=== PATIENT | female | born 1970 | race Caucasian/White ===

== ENCOUNTER → 2016-06-27 | Day surgery (SDC) | payer OTHER ==
[2016-06-14 13:51] VITALS: Ht 167.6 cm; Wt 100.9 kg
[~2016-06-27] VITALS: Ht 167.6 cm; Wt 100.9 kg
[~2016-06-27] MED LIST: AMX500 PO; ASPI81TA28 PO; DICL1GEL12 TOP; EPIN1INJ37 IM; EPP3/2 IM; GLC500 PO; LEVO200T6 PO; LEVO300T31 PO; LEVO75TA5 PO; LIDOCAINE HCL 2% 2 ML VIAL (20MG/ML) ONE; LISI-461 PO; LISI10TA PO; LPT/20 PO; LSX20 PO; MIDAZOLAM HCL 1 MG/ML 2ML VIAL ONE; MTR/600 PO; OMEP20CA9 PO; ONDANSETRON INJ 2 MG/ML 2 ML VIAL ONE; OXYC-106 PO; POTA10TA32 PO; PRLSR20 PO; PROPOFOL IV EMULSION 10 MG/ML 20 ML VIAL IV ONE; PRVHFAIN INH; RANI150T2 PO; RANI150T3 PO; SODIUM CHLORIDE 0.9% 500ML 500 ML IV ONE; TOLT1CAP3 PO
--- NOTE | 2016-06-27 09:37 | Endo History and Physical ---
History & Physical Date of Service: Jun 27, 2016. Chief Complaint: Holm's Referring Physician: Dr. 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 Past Surgical History Hx Cardiac Surgery: No Hx Internal Defibrillator: No Hx Pacemaker: No Hx Abdominal Surgery: Yes ( JOSE MIGUEL, ALEXIS BSO) Hx of Implantable Prosthesis: No Hx Post-Op Nausea and Vomiting: No Hx Cancer Surgery: No Hx Thoracic Surgery: No Hx Orthopedic: Yes (RT/LEFT KNEE ARTHROSCOPY (LEFT X 2); LUMBAR LAMINECTOMY, LUMBAR FUSION) Hx Urinary Tract Surgery: No Family History Colon CA Social History Smoking Status: Current Every Day Smoker Hx Substance Use: Yes (SEE MED REC) Hx Alcohol Use: No Allergies Coded Allergies: Bee Venom (Verified Allergy, Unknown, SWELLING, CAN'T BREATHE, 06/14/16) Reported by PT Morphine (Verified Adverse Reaction, Intermediate, Pt was "out of it", ) PT SAYS SHE WAS "OUT OF IT" WHEN SHE RECEIVED IT Codeine (Verified Adverse Reaction, Mild, HYPERACTIVITY, 06/14/16) Current Medications Reported Home Medications Medications Dose Route/Sig Max Daily Dose Days Date Category Dose Instructions Prinivil (Lisinopril) 10 Mg Tab 10 Mg PO QAM 06/14/16 Reported Ventolin Hfa (Albuterol) 60 Puffs/5400 Mcg Aers 1-2 Puffs INH Q4H PRN 06/14/16 Reported Metformin HCl 500 Mg Tab 500 Mg PO BID 11/13/15 Reported Aspirin Ec (Aspirin) 81 Mg Tab 81 Mg PO QAM 08/31/14 Reported Atorvastatin Calcium (Atorvastatin) 20 Mg Tab 20 Mg PO QAM 08/31/14 Reported Levothyroxine Sodium 300 Mcg Tab 300 Mcg PO QAM 08/31/14 Reported Zantac (Ranitidine HCl) 150 Mg Tab 300 Mg PO HS 08/31/14 Reported Percocet 10MG/325MG (Oxycodone/Acetaminophen) Tab 1 Tab PO 5XD PRN 08/31/14 Reported Epipen 2-Hola (Epinephrine) 0.3 Mg Inj 0.3 Mg IM UD PRN 08/31/14 Reported DIRECTED FOR BEE STINGS. Tolterodine Tartrate ER (Tolterodine Tartrate) 4 Mg Cap 4 Mg PO QAM 08/31/14 Reported Prilosec (Omeprazole) 20 Mg Capcr 20 Mg PO QAM 06/19/13 Reported Vital Signs Weight (Kilograms): 100.91 Height (Feet): 5 Height (Inches): 6 Date Time Temp Pulse Resp B/P Pulse Ox O2 Delivery O2 Flow Rate FiO2 06/27/16 08:54 36.5 71 20 137/85 100 Room Air Physical Exam General Appearance: WD/WN, no apparent distress Respiratory/Chest: Auscultation: breath sounds normal Cardiovascular: Heart Auscultation: RRR Abdomen: Bowel Sounds: normal Inspection & Palpation: soft, non-distended, no tenderness, guarding & rebound Assessment and Plan Assessment: 46 yo CF who presents for EGD secondary to Holm's Esophagus. Plan: Proceed with EGD
--- NOTE | 2016-06-27 09:48 | Discharge Instructions ---
Endoscopy Patient Instructions Date / Procedure(s) Performed Jun 27, 2016. EGD Allergy Information Coded Allergies: Bee Venom (Verified Allergy, Unknown, SWELLING, CAN'T BREATHE, 06/14/16) Reported by PT Morphine (Verified Adverse Reaction, Intermediate, Pt was "out of it", ) PT SAYS SHE WAS "OUT OF IT" WHEN SHE RECEIVED IT Codeine (Verified Adverse Reaction, Mild, HYPERACTIVITY, 06/14/16) Discharge Date / Findings Jun 27, 2016. Gastritis s/p biopsies Holm's Esophagus s/p biopsies Medication Instructions Stopped Medication(s): stopped ASA and Metformin on June 23 OK to resume all medications today as prescribed Reported Home Medications Medications Dose Route/Sig Max Daily Dose Days Date Category Dose Instructions Prinivil (Lisinopril) 10 Mg Tab 10 Mg PO QAM 06/14/16 Reported Ventolin Hfa (Albuterol) 60 Puffs/5400 Mcg Aers 1-2 Puffs INH Q4H PRN 06/14/16 Reported Metformin HCl 500 Mg Tab 500 Mg PO BID 11/13/15 Reported Aspirin Ec (Aspirin) 81 Mg Tab 81 Mg PO QAM 08/31/14 Reported Atorvastatin Calcium (Atorvastatin) 20 Mg Tab 20 Mg PO QAM 08/31/14 Reported Levothyroxine Sodium 300 Mcg Tab 300 Mcg PO QAM 08/31/14 Reported Zantac (Ranitidine HCl) 150 Mg Tab 300 Mg PO HS 08/31/14 Reported Percocet 10MG/325MG (Oxycodone/Acetaminophen) Tab 1 Tab PO 5XD PRN 08/31/14 Reported Epipen 2-Hola (Epinephrine) 0.3 Mg Inj 0.3 Mg IM UD PRN 08/31/14 Reported DIRECTED FOR BEE STINGS. Tolterodine Tartrate ER (Tolterodine Tartrate) 4 Mg Cap 4 Mg PO QAM 08/31/14 Reported Prilosec (Omeprazole) 20 Mg Capcr 20 Mg PO QAM 06/19/13 Reported Provider Instructions Activity Restrictions - No exercising or heavy lifting for 24 hours. - Do not drink alcohol the day of the procedure. - Do not drive a car or operate machinery until the day after the procedure. - Do not make any important decisions or sign important papers in 24 hours after the procedure. Following Day: - Return to full activity which may include returning to work/school. Diet Start your diet with liquids and light foods (jello, soup, juice, toast). Then eat your usual diet if not nauseated. Treatment For Common After Affects For mild abdominal pain, bloating, or excessive gas: - Rest - Eat lightly - Lie on right side Follow-Up Information Follow-up with Dr. Rory Randall as scheduled Anesthesia Information What You Should Know You have had a procedure that required some medicine to reduce anxiety and discomfort. This treatment is called moderate sedation. After receiving the treatment, you may be sleepy, but you will be able to breathe on your own. The effects of the treatment may last for several hours. Follow these instructions along with Activity/Diet recommendations noted above: * Do NOT do anything where dizziness or clumsiness would be dangerous. * Rest quietly at home today, then you can be up and about tomorrow. * Have a responsible person stay with you the rest of today. * You may have had an I.V. today. If so, you may take the dressing off later today. Recommendations Call your doctor if: * Trouble breathing * Continuous vomiting for more than 24 hours * Temperature above 101 degrees * Severe abdominal pain or bloating * Pain not relieved by pain medicine ordered * There is increased drainage or redness from any incision * A large amount of rectal bleeding greater than 2-3 tablespoons. (If you had a polyp/s removed or have hemorrhoids, a small amount of blood - from the rectum is to be expected.) * You have any unanswered questions or concerns. IN THE EVENT OF A SERIOUS EMERGENCY, GO TO THE NEAREST EMERGENCY ROOM Your discharge instructions were prepared by provider Juan Manuel Albarado. Patient Instructions Signature Page Barbara Andujar Patient (or Guardian) Signature/Date: I have read and understand the instructions given to me by my caregivers. Caregiver/RN/Doctor Signature/Date: The above-named patient and/or guardian has received patient instructions on this date. + Original Patient Signature Page (only) stays with chart. Please make copy for patient.
--- NOTE | 2016-06-27 10:13 | Anesthesiology Progress Note ---
Anesthesia Post Op Note Date & Time Jun 27, 2016 at 10:12 Vital Signs Pain Intensity: 0 Vital Signs Past 12 Hours Date Time Temp Pulse Resp B/P Pulse Ox O2 Delivery O2 Flow Rate FiO2 06/27/16 10:08 72 20 117/78 98 Room Air 06/27/16 09:53 83 20 104/58 95 Mask 5 06/27/16 08:54 36.5 71 20 137/85 100 Room Air Notes Mental Status: alert / awake / arousable, participated in evaluation Pt Amnestic to Procedure: Yes Nausea / Vomiting: adequately controlled Pain: adequately controlled Airway Patency, RR, SpO2: stable & adequate BP & HR: stable & adequate Hydration State: stable & adequate Anesthetic Complications: no major complications apparent Pt doing well.
[2016-06-27 10:23] VITALS: BP 112/73; PULSE 69; O2SAT 99
--- NOTE | 2016-06-27 10:42 | GI REPORT ---
Procedure Date: 06/27/2016 9:36 AM Procedure: Upper GI endoscopy Indications: Follow-up of Holm's esophagus Medicines: Monitored Anesthesia Care Complications: No immediate complications. Estimated Blood Loss: Estimated blood loss: none. Procedure: Pre-Anesthesia Assessment: - Prior to the procedure, a History and Physical was performed, and patient medications and allergies were reviewed. The patient's tolerance of previous anesthesia was also reviewed. The risks and benefits of the procedure and the sedation options and risks were discussed with the patient. All questions were answered, and informed consent was obtained. Prior Anticoagulants: The patient has taken aspirin, last dose was 5 days prior to procedure. ASA Grade Assessment: III - A patient with severe systemic disease. After reviewing the risks and benefits, the patient was deemed in satisfactory condition to undergo the procedure. After obtaining informed consent, the endoscope was passed under direct vision. Throughout the procedure, the patient's blood pressure, pulse, and oxygen saturations were monitored continuously. The On-site loaner was introduced through the mouth, and advanced to the second part of duodenum. The upper GI endoscopy was accomplished without difficulty. The patient tolerated the procedure well. Findings: There were esophageal mucosal changes consistent with short-segment Holm's esophagus present at the gastroesophageal junction. The maximum longitudinal extent of these mucosal changes was 2 cm in length. Mucosa was biopsied with a cold forceps for histology. One specimen bottle was sent to pathology. Localized mild inflammation characterized by erythema was found in the gastric antrum. Biopsies were taken with a cold forceps for histology. The examined duodenum was normal. Impression: - Esophageal mucosal changes consistent with short-segment Holm's esophagus. Biopsied. - Gastritis. Biopsied. - Normal examined duodenum. Recommendation: - Resume previous diet. - Continue present medications. - Await pathology results. - Return to GI office as previously scheduled. Juan Manuel Albarado DO 06/27/2016 9:52:58 AM This report has been signed electronically. Note Initiated On: 06/27/2016 9:36 AM I attest to the content of the Intraoperative Record and orders documented therein, exceptions below
== END | disposition home or self-care (01) ==
LOC: C.GI 08:32
PROVIDERS: ATTEND Internal Medicine
DX: K22.70 Barrett's esophagus without dysplasia (principal); K29.50 Unspecified chronic gastritis without bleeding; K21.0 Gastro-esophageal reflux disease with esophagitis; F17.200 Nicotine dependence, unspecified, uncomplicated

== ENCOUNTER → 2016-10-26 | Outpatient (CLI) | payer OTHER ==
[~2016-10-26] MED LIST changes: -LEVO300T31 PO; +LEVO300T5 PO; -LIDOCAINE HCL 2% 2 ML VIAL (20MG/ML) ONE; -MIDAZOLAM HCL 1 MG/ML 2ML VIAL ONE; -ONDANSETRON INJ 2 MG/ML 2 ML VIAL ONE; -PROPOFOL IV EMULSION 10 MG/ML 20 ML VIAL IV ONE; -SODIUM CHLORIDE 0.9% 500ML 500 ML IV ONE
--- NOTE | 2016-10-27 06:50 | SPLIT NIGHT TECHNICIAN REPORT ---
[facility] Split Night Polysomnogram - Technical Customer Support Specialist Report Study date: 10/26/2016 Referring Physician: EVON AMOS PA-C Name: SAMIR LANE Technical Customer Support Specialist: Stephen Ruelas [facility]. Date of : 1970 Height: 46 years, Height 5' 5" Sex: Female Weight: 219 lbs Age: 46 BMI: Medications: 36.44 LISINOPRIL 10 MG, METFORMIN 500 MG, CLARITIN 10 MG, SYNTHROID 200 MCG, ZOFRAN ODT 4 MG, VENTOLIN HFA 90 MCG, IBUPROFEN 600 MG, DEXILANT 60 MG, ZANTAC, DETROL LA 4 MG, VENTOLIN HFA 90 MCG, METFORMIN 500 MG, ATORVASTATIN HFA 90 MCG, HYDROCHLOROTHIAZIDE 50 MG, TOLTERODINE 4 MG, OMEPRAZOLE 20 MG, PERCOCET Patient History PATIENT HAS HISTORY OF SNORING, FATIGUE AND EXCESSIVE DAYTIME SLEEPINESS. SHE ALSO HAS HISTORY OF ASTHMA, PUD, ARTHRITIS AND HYPERCHOLESTEROLEMIA. SHE HAD A SLEEP DONE MANY YEARS AND WAS TOLD SHE HAD MILD DENICE. SHE IS HERE TODAY FOR AN EVALUATION FOR DENICE. ESS= 3 RM 5 Parameters Monitored NPSG: E1-M2, E2-M1, Fp1-M2, Fp2-M1, F3-M2, F4-M2, F4-M1, C3-M2, C4-M2, C4-M1, O1-M2, O2-M2, O2-M1, T3-M2, T4-M1, P3-M2, P4-M1, CHIN1, CHIN2, HR, EKG, Legs, PFLOW, SNOR, FLOW, CFLOW, Tidal Volume, THOR, ABDO, SpO2, PLTH, CPRESS, ETCO2 Wave, ETCO2, pH SLEEP SUMMARY DATA DIAGNOSTIC TREATMENT Lights Out: 10:12:47 PM 1:50:47 AM Lights On: 1:39:47 AM 6:12:47 AM Total Recording Time (TRT): 207.5 min. 263.0 min. Total Sleep Time (TST): 123.5 min. 233.0 min. NREM Time: 112.0 min. 172.0 min. REM Time: 11.5 min. 61.0 min. Sleep Period Time (SPT): 138.0 min. 258.5 min. Sleep Efficiency (SE): 60 % 89 % Sleep Latency: 69.0 min. 3.5 min. Arousal Index: 23.8 6.7 PAP Treatment Levels: 4, 5, 6, 8 * Optimal Pressure(s) SLEEP STAGING DATA DIAGNOSTIC TREATMENT Duration (min) TST % Duration (min) TST % Stage Wake: 83.5 min. -- 30.0 min. -- WASO: 14.5 min. -- 25.5 min. -- NREM: 112.0 min. 91 % 172.0 min. 74 % Stage N1: 8.0 min. 6 % 7.5 min. 3 % Stage N2: 75.0 min. 61 % 135.0 min. 58 % Stage N3: 29.0 min. 23 % 29.5 min. 13 % REM: 11.5 min. 9 % 61.0 min. 26 % POSITIONAL DATA Event Count Index Event Count Index Supine: 59 45.5 6 2.6 Supine NREM: 41 37.1 6 2.6 Supine REM: 18 94 N/A N/A Non-Supine: 31 40.7 2 1.0 Non-Supine NREM: 31 40.7 1 1.0 Non-Supine REM: N/A N/A 1 1.0 AROUSAL SUMMARY DATA: Event Count Index Event Count Index Apnea Arousals: 1 1.0 0 1.0 Hypopnea Arousals: 12 5.8 2 0.5 Snore Arousals: 3 1.5 5 1.3 PLM Arousals: 19 9.2 3 0.8 Non-Specific Arousals: 11 5.3 11 2.8 Total Arousals: 49 23.8 26 6.7 MYOCLONUS (PLM) Event Count Index Event Count Index PLM: 134 65.1 121 31.2 PLM AROUSAL: 19 9.2 3 0.8 PLM W/O AROUSAL 134 65.1 118 30.4 PLM W/RESP EVENT 18 0.0 0 0.0 MYOCLONUS (PLM) Event Count Index Event Count Index LM: 7 25.3 34 8.8 LM AROUSAL: 7 3.4 4 1.0 LM W/O AROUSAL LM W/RESP EVENT LM NON SPECIFIC 115 55.9 145 37.3 HEART RATE DATA DIAGNOSTIC TREATMENT Sleep (bpm): 76 71 REM (bpm): 86 92 NREM (bpm): 88 91 Tachycardia Count: 0 0 Tachycardia Duration: 0.00 0 Bradycardia Count: 0 0 Bradycardia Duration: 0.00 0 DIAGNOSTIC PORTION TREATMENT PORTION RESPIRATORY DATA Event Count Index Event Count Index AHI: -- 43.7 -- 1.8 RDI: -- 43.7 -- 2 Obstructive Apnea: 2 1.0 3 0.8 Central Apnea: 0 0.0 1 0.3 Mixed Apnea: 0 0.0 0 0.0 Hypopnea: 88 42.8 3 0.8 RERA: 0 0.0 1 0.3 Total Apneas: 2 1.0 4 1.0 RESPIRATORY DATA REM NREM SLEEP REM NREM SLEEP Supine Position: Obstructive Apneas: 1 1 2 N/A 3 3 Central Apneas: 0 0 0 N/A 0 0 Mixed Apneas: 0 0 0 N/A 0 0 Hypopneas: 17 40 57 N/A 2 2 RERA 0 0 0 N/A 1 1 Total Supine Events: 18 41 59 N/A 6 6 Supine AHI: 94 37.1 45.5 N/A 2.6 2.6 Supine RDI: 93.9 37.1 45.5 N/A 3.2 3.2 REM NREM SLEEP REM NREM SLEEP Non-Supine Position: Obstructive Apneas: N/A 0 0 0 0 0 Central Apneas: N/A 0 0 1 0 1 Mixed Apneas: N/A 0 0 0 0 0 Hypopneas: N/A 31 31 0 1 1 RERA N/A 0 0 0 0 0 Total Supine Events: N/A 31 31 1 1 2 Supine AHI: N/A 40.7 40.7 1.0 1.0 1.0 Supine RDI: N/A 40.7 40.7 1.0 1.0 1.0 OXYGEN DESTAURATION DATA: Event Count Index Event Count Index REM Desaturations: 19 99.1 1 1.0 NREM Desaturations: 77 41.3 6 2.1 SNORE DATA DIAGNOSTIC TREATMENT Snore Time: 4.7 1:54:17 AM Snore TST%: 2 2 Snore Arousal Count: 3 5 Snore Arousal Index: 1.5 1.3 Desaturation Event Summary: Minimum %SpO2 Event Count Mean/Min/Max Duration(sec.) Desaturation Index % Time In Bed > 90 89 22.2 / 5.8 / 60.0 25.5 45.2 86 - 90 84 21.0 / 6.8 / 58.8 21.0 51.8 81 - 85 3 11.7 / 10.3 / 13.3 13.7 2.8 76 - 80 0 N/A 0.0 0.2 71 - 75 0 N/A 0.0 0.0 66 - 70 0 N/A 0.0 0.0 61 - 65 0 N/A 0.0 0.0 56 - 60 0 N/A 0.0 0.0 51 - 55 0 N/A 0.0 0.0 < 50 0 N/A 0.0 0.0 OXYGEN SATURATION DATA DIAGNOSTIC TREATMENT SpO2 Mean Sleep: 88 % 91 % SpO2 Mean REM: 86 % 92 % SpO2 Mean NREM: 88 % 91 % SpO2 Minimum Sleep: 75 % 85 % SpO2 Minimum REM: 75 % 86 % SpO2 Minimum NREM: 82 % 85 % Time Below 90% (TST): 98.0 45.5 Time Below 88% (TST): 60.3 1.7 Total REM NREM Awake <50% 0.0 min. 0.0 min. 0.0 min. 0.0 min. 51 - 60% 0.0 min. 0.0 min. 0.0 min. 0.0 min. 61 - 70% 0.0 min. 0.0 min. 0.0 min. 0.0 min. 71 - 80% 0.9 min. 0.9 min. 0.0 min. 0.0 min. 81 - 90% 253.1 min. 15.3 min. 168.2 min. 69.6 min. 91 - 100% 209.3 min. 56.3 min. 115.3 min. 37.7 min. Average 90 91 90 90 Minimum SpO2 75 75 82 85 Desaturation Event Index 16.4 16.6 17.5 13.3 # Desat. Events below 89% 108 20 77 11 Time(%) with Saturation below 89% 27.4 1.8 20.6 5.0 Time(min.) with Saturation below 89% 126.8 8.3 95.4 23.1 Recording Technical Customer Support Specialist Comments: Ms. Lane slept in the right, left, supine and prone positions. No cardiac arrhythmia noted. Leg movements noted. No bruxism noted. Snoring was noted and scored as a 3 on a scale of 1 through 5. (0=no snoring, 5=snoring loud enough to be heard through a closed door or down the nugent way) At 1:39 am, Ms. Lane has met specific Split-Night criteria during the diagnostic portion of this study. CPAP was initiated at +4 CMH2O and up-titrated to an optimal level of 8 CMH2O, which nearly eliminated all respiratory events and snoring. A Resmed Mirage fx nasal mask was used during titration Ms. Lane awoke to use the restroom 1 time during the night. Ms. Lane stated I slept as well as I do when I am in my own bed. Supplemental oxygen was initiated at 4:40 am starting at 1l/min. The patient was under 89% for at least 5 minutes with an optimal pressure for at least 2 hours and an AHI under 5/hr. The final report will be interpreted and signed by a sleep physician. The completed physician report will then be placed in the patient medical record. Therapy Event: Therapy (cm H20) 0 4 5 6 8 Total Time at Pressure (min.) 207.0 39.4 166.8 35.3 20.5 TST at Pressure (min.) 123.5 34.9 143.3 35.3 19.5 # Periods 1 1 1 1 1 Sleep Onset (min.) 69.0 3.5 0.0 0.0 0.0 REM Onset (min.) 189.5 N/A 89.1 N/A N/A Sleep Efficiency % 59 88 85 100 95 Wakefulness (%) 40.3 11.4 14.1 0.0 4.9 Wakefulness (min.) 83.5 4.5 23.5 0.0 1.0 NREM 1 (%) 3.9 5.1 3.3 0.0 0.0 NREM 1 (min.) 8.0 2.0 5.5 0.0 0.0 NREM 2 (%) 36.2 83.5 37.6 56.2 95.1 NREM 2 (min.) 75.0 32.9 62.8 19.8 19.5 NREM 3 (%) 14.0 0.0 8.4 43.8 0.0 NREM 3 (min.) 29.0 0.0 14.0 15.5 0.0 REM (%) 5.6 0.0 36.6 0.0 0.0 REM (min.) 11.5 0.0 61.0 0.0 0.0 # Arousals 49 3 13 5 5 Arousal Index 23.8 5.2 5.4 8.5 15.4 # Snore 264 15 61 25 51 Snore Index 128.3 25.8 25.5 42.4 156.9 AHI 43.7 0.0 1.3 5.1 3.1 AHI Supine 45.5 0.0 2.4 5.1 3.1 AHI Non-Supine 40.7 N/A 1.0 N/A N/A NREM AHI 38.6 0.0 1.5 5.1 3.1 REM AHI 93.9 N/A 1.0 N/A N/A RDI 43.7 1.7 1.3 5.1 3.1 # Obstructive 2 0 0 2 1 # Central Ap 0 0 1 0 0 # Mixed 0 0 0 0 0 # Hypopneas 88 0 2 1 0 RERAS 0 1 0 0 0 Total Respiratory Events 90 1 3 3 1 Time Below SpO2 89.00% (min.) 82.8 15.4 5.2 0.3 0.0 Mean NREM SpO2 (%) 88 89 91 91 92 Mean REM SpO2 (%) 86 N/A 92 N/A N/A Mean Sleep SpO2 (%) 88 89 92 91 92 Min NREM SpO2 (%) 82 87 85 87 89 Min REM SpO2 (%) 75 N/A 86 N/A N/A Position Supine (min.) 77.8 34.9 24.5 35.3 19.5 Position Non-supine (min.) 45.7 0.0 118.7 0.0 0.0 LM Index Sleep 90.4 68.8 28.1 27.2 98.5 LM Index NREM 96.4 68.8 29.2 27.2 98.5 LM Index REM 31.3 N/A 26.6 N/A N/A Mean Heart Rate (bpm) 76 72 71 73 70 Min Heart Rate (bpm) 60 64 59 68 63
--- NOTE | 2016-10-29 09:35 | Sleep Study ---
Sleep Study Report Date of Service: 10/26/2016 Sleep Study Report Clinical data: The patient is referred by Roya Huizar PA-C for an in-lab sleep study. She is a 46-year-old female with a prior history of sleep apnea, currently not being treated. Her symptoms are snoring, fatigue, and excessive daytime somnolence. Her Delray score was 3. Her comorbidities include hypertension, diabetes, hypothyroidism, reflux, and asthma. This was a split study. Her BMI is 36.44. Sleep architecture: The sleep period time was 138 minutes. The total sleep time was 123.5 minutes. The sleep efficiency was moderately reduced to 60 percent. The sleep latency was prolonged to 69 minutes. Sleep consisted of stage N1 6 percent, stage N2 61 percent, stage N3 23 percent , stage REM 9 percent. During the therapeutic portion of the study the patient's respiratory events were treated with nasal CPAP. The sleep period time was 258.5 minutes. The total sleep time was 233 minutes. The sleep efficiency was 89 percent. Sleep latency was 3.5 minutes. Sleep consisted of stage N1 3 percent, stage N2 58 percent, stage N3 13 percent , and stage REM 26 percent. Arousal data: During the diagnostic portion of the study the patient had 49 arousals including 1 apnea arousal, 12 hypopnea arousals, 3 snoring arousals, 19 PLM arousals, and 11 nonspecific arousals. The arousal index was 23.8. During the therapeutic portion of the study the patient had 26 arousals including 2 hypopnea arousals, 5 snoring arousals, 3 PLM arousals, and 11 nonspecific arousals. The arousal index was 6.7. PLM data: During the diagnostic portion of the study the patient had 134 periodic limb movements for an index of 65.1. There were 19 arousals for a PLM arousal index of 9.2. During the therapeutic portion of the study the patient had 121 periodic limb movements for an index of 31.2. There were 3 arousals for a PLM arousal index of 0.8. EKG: The underlying cardiac rhythm was normal sinus. The cardiac rates ranged from 76 to 91 beats per minute. The patient had frequent relatively brief pauses. These appear to be blocked PACs. This occurred with the patient awake and with sleep. Later on during the nighttime as she was treated with nasal CPAP these pauses became very infrequent. Respiratory data: During the diagnostic portion of the study the patient had a total of 90 respiratory events including 2 obstructive apneas and 88 hypopneas. Hypopneas were scored according to the 4 percent desaturation rule. The apnea-hypopnea index was severely elevated at 43.7. This would reflects severe sleep apnea. During the therapeutic portion of the study the patient's nocturnal events were treated with nasal CPAP which was titrated to a final pressure of 8 centimeters. She had a total of 7 respiratory events including 3 obstructive apneas, 1 central apnea, and 3 hypopneas. The apnea-hypopnea index was normal at 1.8 events per hour. Oximetry data: During the diagnostic portion of the study the mean saturation was 88 percent. The minimum saturation was 75 percent. There was a total of 60.3 minutes with saturations less than 88 percent. During the therapeutic portion of the study the mean saturation was 91 percent. The minimum saturation was 85 percent. There was a total of only 1.7 minutes with saturations less than 88 percent. Financial Coordinator comments: The patient slept on the right, left, supine, and prone positions. Leg movements were noted. No bruxism noted. Snoring was noted and scored as a 3 on a scale of 1 through 5. At 1:39 a.m. the patient met specific split night criteria during the diagnostic portion of the study. CPAP was initiated at 4 centimeters and up titrated to an optimum level of 8 centimeters which nearly eliminated all respiratory events and snoring. A ResMed had Mirage FX nasal mask was used during titration. Supplemental oxygen was initiated at 4:40 a.m. starting at 1 liter/minute as the patient was under 89 percent for at least 5 minutes. Impressions: 1. Obstructive sleep [id number] with nasal CPAP at 8 centimeters 2. Periodic limb movement disorder Comments: The patient had severe sleep apnea. Her sleep efficiency during the diagnostic portion was low, mainly related to a markedly prolonged sleep latency of 69 minutes. It was noted that the patient appeared to be on her cell phone much of the time. She did have frequent periodic limb movements but with relatively few arousals. After the initiation of nasal CPAP therapy her sleep became much better consolidated. There was a significant decrease in the arousals. Her oxygenation improved. Near the end of the study she had been placed on 1 liter of oxygen. However her time less than 88 percent during the CPAP titration was only 1.7 minutes and it is unlikely she requires oxygen to be instilled into the CPAP at present. The patient does have a number of comorbidities for sleep apnea and clearly should be treated. She did have the frequent pauses especially during the 1st half of the night. They most likely represented blocked PACs. This was occurring during wake as well as sleep. These pauses became much less frequent with CPAP titration. Advise clinical correlation. Recommendations: 1. It is advised that the patient be started on nasal CPAP at 8 centimeters. 2. It is advised that she be ordered a [employer] Mirage FX nasal mask. 3. It is suggested that the patient have humidity instilled into her CPAP. 4. The patient has a significant elevation of body mass index at 36.44. A weight reduction program is advised. 5. It would be advised that the patient avoid sleeping in the supine position if possible. 6. The patient should be seen between day 31 day 90 after receiving her CPAP as per the mandate of insurance carriers. 7. After the patient is adapted to nasal CPAP therapy would be advised that she have an overnight pulse oximetry study to then determine if there is an indication for nocturnal oxygen therapy into the CPAP. Copies To 1: Roman Leonardo DO; Roya Huizar PA-C
== END | disposition home or self-care (01) ==
LOC: C.NEUR 21:00
PROVIDERS: ATTEND Physician Assistant
DX: G47.30 Sleep apnea, unspecified (principal)

== ENCOUNTER 2017-01-02 15:55 | Emergency (ER) | payer OTHER ==
[~2017-01-02] VITALS: Ht 167.6 cm; Wt 100.7 kg
[~2017-01-02 15:55] MED LIST changes: -AMX500 PO; -ASPI81TA28 PO; -DICL1GEL12 TOP; -EPIN1INJ37 IM; -LEVO200T6 PO; -LEVO75TA5 PO; -LISI-461 PO; -LPT/20 PO; -LSX20 PO; -MTR/600 PO; -OMEP20CA9 PO; -OXYC-106 PO; -POTA10TA32 PO; -RANI150T2 PO
[2017-01-02 16:04] VITALS: TEMP 37; Ht 167.6 cm; Wt 100.7 kg
[2017-01-02] MEDS ORDERED: HYDROCODONE/ACETAMOPHEN 5/325MG TAB PO STA (16:31)
[2017-01-02] MEDS ORDERED: AMOXICILLIN 500 MG CAP PO STA (16:31)
[2017-01-02] MEDS ORDERED: AMX500 PO (16:35)
--- NOTE | 2017-01-02 16:36 | EMERGENCY ROOM VISIT NOTE ---
History First contact with patient: 16:17 Chief Complaint: EAR PAIN Stated Complaint: EAR HURTS History of Present Illness The patient is a 46 year old female who presents to the Emergency Room via private vehicle coming by male with complaints of "ear hurts". The patient states that she has had right ear pain that is progressively been worsening over the past 1 week. She rates the pain as a 7/10. She states it began inside the right ear, and now radiates to her face and right eye. She denies any history of problems with the right ear. She denies any history of ear tubes. She denies any fevers or chills. Review of Systems A complete 6-point Review of Systems was discussed with the patient, with pertinent positives and negatives listed in the History of Present Illness. All remaining Review of Systems questions can be considered negative unless otherwise specified. Past Medical/Surgical History Surgical Problems: (1) No pertinent past surgical history Family History Patient reports no known family medical history. No pertinent Social History Smoking Status: Never Smoker Alcohol Use: none Marital Status: single Current/Historical Medications Scheduled Amoxicillin (Amoxicillin), 500 MG PO TID Aspirin (Aspirin Ec), 81 MG PO QAM Atorvastatin (Atorvastatin Calcium), 20 MG PO QAM Diclofenac Sodium (Topical) (Voltaren 1% Top Gel), 1 APPLN TOP TID Furosemide (Furosemide), 40 MG PO DAILY Levothyroxine Sodium (Levothyroxine Sodium), 75 MCG PO DAILY Levothyroxine Sodium (Levothyroxine Sodium), 200 MCG PO DAILY Lisinopril (Lisinopril), 10 MG PO QAM Metformin HCl (Metformin HCl), 500 MG PO BID Omeprazole (Prilosec), 20 MG PO QAM Potassium Chloride Microencaps (Potassium Chloride Er), 10 MEQ PO QAM Ranitidine HCl (Ranitidine HCl), 150 MG PO HS Scheduled PRN Albuterol (Ventolin Hfa), 1-2 PUFFS INH Q4H PRN for Shortness of Breath Epinephrine (Epinephrine), 0.3 MG IM UD PRN for ALLERGIC REACTION Ibuprofen (Ibuprofen), 600 MG PO TID PRN for Pain Oxycodone/Acetaminophen 10MG/325MG (Percocet 10MG/325MG), 1 TAB PO 5XD PRN for Pain Physical Exam Vital Signs Date Time Temp Pulse Resp B/P (MAP) Pulse Ox O2 Delivery O2 Flow Rate FiO2 01/02/17 16:04 37.0 87 20 138/86 97 Room Air Physical Exam VITAL SIGNS - Vital signs and nursing notes were reviewed. Stable. Afebrile. GENERAL -46-year-old female appearing her stated age who is in no acute distress. Communicates well with provider and answers questions appropriately. SKIN - Without rashes. No petechial rashes or evidence of herpetic rash on the right zoroastrian region. HEAD - NC/AT. No evidence of temporal arteritis. EYES - PERRL with EOMI bilaterally. Sclera anicteric. EARS - No deformities of external structures noted on gross examination bilaterally. No pain elicited with palpation of the tragus bilaterally. External auditory canals without discharge or otorrhea. Left Tympanic membranes pearly leggett without retraction or bulging. No fluid or purulent material visualized behind the TM. Handle of malleus, umbo, cone of light, pars tensa/flaccid all easily visualized. Right ear reveals a white serous-like dependent fluid behind the TM as well as slight retraction. There may also be evidence of scarring. NOSE - Midline and without cyanosis. No epistaxis or purulent drainage noted. MOUTH/OROPHARYNX - Without perioral cyanosis. Buccal mucosa pink and moist and without leukoplakia. Tongue midline with equal elevation of palate bilaterally. No tonsillar hypertrophy, erythema, or exudates noted. Fair dentition noted. NECK - Neck with FROM. Supple to palpation. No lymphadenopathy noted. No nuchal rigidity. LUNGS - Chest wall symmetric without accessory muscle use, intercostals retractions, or central cyanosis. Normal vesicular breath sounds CTA B/L. No wheezes, rales, or rhonchi appreciated. CARDIAC - RRR with S1/S2. No murmur, rubs, or gallops appreciated. Medical Decision & Procedures Medications Administered Medications (Trade) Dose Ordered Sig/Geoff Route Start Time Stop Time Status Last Admin Dose Admin Amoxicillin (Amoxil Cap) 500 mg NOW STAT PO 01/02/17 16:31 01/02/17 16:33 DC 01/02/17 16:54 500 MG Medical Decision Patient was seen and evaluated as above. She presents twisted today with right ear pain. Examination is consistent with that of acute serous otitis media. She was offered Wells here for pain, but declined. She was given a prescription for amoxicillin. She is to follow with her family doctor. She is to return with worsening. She was educated upon management, educated upon worrisome symptoms in which to return, had questions answered prior to discharge , and was discharged home in good condition. No evidence of mastoiditis, meningitis, encephalitis, shingles, or temporal arteritis on exam. In evaluation and treatment of this patient the following differential diagnoses were entertained: Serous otitis media, otitis externa, mastoiditis, encephalitis, meningitis, among others. Medication Reconcilliation Current Medication List: was personally reviewed by me Blood Pressure Screening Patient's blood pressure: Elevated blood pressure Blood pressure disposition: Elevated BP felt to be situational Impression Primary Impression: Acute serous otitis media of right ear Departure Information Dispostion Home / Self-Care Condition GOOD Prescriptions Amoxicillin (Amoxicillin) 500 Mg Cap 500 MG PO TID, #29 TABS Prov: Mark Lord PA-C 01/02/17 Referrals No Doctor, Assigned (PCP) Patient Instructions My [facility] Additional Instructions You have been treated in the Emergency Department for an Inner Ear Infection ( Otitis Media). You have received pain medicine in the emergency department which impairs your ability to operate a vehicle. It is illegal for you to drive after receiving these medicines. You were prescribed amoxicillin to be taken every 8 hours for 10 days your given the first dose here with her next dose due at 1 AM. This is an antibiotic. All antibiotics have the potential to cause diarrhea. Stop this medication and contact a medical provider if you were to develop any significant adverse side effects including: wheezing, shortness of breath, passing out, vomiting, or a diffuse rash. Always take antibiotics as directed and COMPLETE the ENTIRE course regardless of the improvement of your symptoms. For pain and fever control, you can use the following [id number]-[id number] medicines (if >12 yo): - Regular strength (325mg/tab) Tylenol (acetaminophen) 2 tabs every 4-6 hours as needed. Do not exceed 12 tablets in a 24 hour period. Avoid taking more than 3 grams (3000 mg) of Tylenol per day. This includes any other sources of acetaminophen you may take on a regular basis. - Regular strength (200 mg/tab) Advil (ibuprofen) 1-2 tabs every 4-6 hours as needed. Do not exceed a dose of 3200 mg per day. You should follow-up with your Primary Care Provider from today's Emergency Department visit. Return to the emergency department if you develop the following symptoms despite treatment course outlined above: headache, fever, intractable pain, increased redness, swelling, or purulent discharge.
--- NOTE | 2017-01-02 16:51 | EMERGENCY ROOM VISIT NOTE ---
ED Visit Note First contact with patient: 16:17 The patient was seen and examined with Mark Lord PA-C. I agree with the history, physical and findings. Please see the note for disposition and details.
[2017-01-02] MEDS ORDERED: LSX20 PO (17:01)
[2017-01-02] MEDS ORDERED: LISI-461 PO (17:01)
[2017-01-02] MEDS ORDERED: POTA10TA32 PO (17:01)
[2017-01-02] MEDS ORDERED: DICL1GEL12 TOP (17:01)
[2017-01-02] MEDS ORDERED: EPIN1INJ37 IM (17:01)
[2017-01-02] MEDS ORDERED: MTR/600 PO (17:01)
[2017-01-02] MEDS ORDERED: OMEP20CA9 PO (17:01)
[2017-01-02] MEDS ORDERED: RANI150T2 PO (17:01)
[2017-01-02] MEDS ORDERED: LEVO75TA5 PO (17:07)
[2017-01-02] MEDS ORDERED: LEVO200T6 PO (17:07)
[2017-01-02 17:11] VITALS: BP 150/107; PULSE 81; O2SAT 97
[2017-01-02] MEDS ORDERED: LPT/20 PO (18:07)
[2017-01-02] MEDS ORDERED: OXYC-106 PO (18:07)
[2017-01-02] MEDS ORDERED: ASPI81TA28 PO (18:09)
== END 2017-01-02 17:12 | disposition home or self-care (01) ==
LOC: C.EDB 15:56 → C.EDD 17:12
DX: H65.01 Acute serous otitis media, right ear (principal); Z79.899 Other long term (current) drug therapy

== ENCOUNTER → 2017-06-05 | Outpatient (CLI) | payer OTHER ==
[~2017-06-05] MED LIST changes: +AMX500 PO; +ASPI81TA28 PO; +DICL1GEL12 TOP; +EPIN0.3I14 IM; -EPP3/2 IM; +LEVO200T6 PO; -LEVO300T5 PO; +LEVO75TA5 PO; +LISI-461 PO; -LISI10TA PO; +LPT20 PO; +LSX20 PO; +MTR/600 PO; +OMEP20CA9 PO; +OXYC-106 PO; +POTA10TA32 PO; -PRLSR20 PO; +RANI150T2 PO; -RANI150T3 PO; -TOLT1CAP3 PO
--- NOTE | 2017-06-05 18:42 | DIAGNOSTIC IMAGING REPORT ---
LUMBAR SPINE MRI HISTORY: Follow-up SYRINX OF SPINAL CORD TECHNIQUE: Multiplanar multisequence MRI of the lumbar spine was performed without the use of contrast. COMPARISON: Lumbar spine MRI 02/10/2016. FINDINGS: For the purpose of the report the L5-S1 disc space will be located on axial image 29 of 34. There is again noted a large syrinx at the distal thoracic spinal cord. This measures approximately 6.4 x 1.4 x 1.3 cm. This remains unchanged in size. This is slightly underestimated on the prior study. Mild disc space narrowing at L4-L5, unchanged. There is bony fusion at the L5-S1 disc space. There is posterior decompression and fusion at L5-S1 with pedicle screws and rods. This remains unchanged. Paraspinal soft tissues are unremarkable. L1-L2: No significant central canal or neural foraminal narrowing. L2-L3: No significant central canal or neural foraminal narrowing. Tiny broad-based posterior disc bulge with a tiny central focal disc protrusion demonstrating superior subligamentous migration. This is slightly improved in the interval L3-L4: No significant central canal or neural foraminal narrowing. L4-L5: No significant central canal or neural foraminal narrowing. Small focal central annular tear, unchanged. L5-S1: No significant central canal or neural foraminal narrowing. IMPRESSION: 1. No significant change compared to the prior study. 2. Stable syrinx at the distal thoracic spinal cord as described above. 3. Postoperative and degenerative changes are again noted. Electronically signed by: Ho Griffith M.D. 06/05/2017 6:41 PM Dictated Date/Time: 06/05/2017 6:33 PM
== END | disposition home or self-care (01) ==
LOC: C.MRI 16:35
PROVIDERS: ATTEND Physician Assistant
DX: G95.0 Syringomyelia and syringobulbia (principal); M51.36 Other intervertebral disc degeneration, lumbar region; M47.816 Spondylosis without myelopathy or radiculopathy, lumbar region

== ENCOUNTER → 2017-06-08 | Outpatient (CLI) | payer OTHER ==
--- NOTE | 2017-06-08 19:37 | DIAGNOSTIC IMAGING REPORT ---
MRI OF THE CERVICAL SPINE WITHOUT IV CONTRAST CLINICAL HISTORY: History of syrinx and previous spinal surgery. COMPARISON STUDY: MRI of the cervical spine dated 02/10/2016. TECHNIQUE: MRI of the cervical spine is performed using various T1 and T2 sequences in the axial and sagittal planes. IV contrast was not administered for this examination. FINDINGS: Cervical spine: Vertebral body height and alignment are maintained throughout the cervical spine. There is straightening of the cervical lordosis. The atlantodental articulation appears preserved. The spinous processes appear intact. No destructive bony lesion is seen or marrow replacement process is identified. Findings suggest previous occipital craniectomy as well as resection of the posterior ring of C1. Intervertebral discs: Degenerative disc desiccation is seen throughout the cervical spine. There is mild loss of height at C6-C7. Spinal cord: A small slitlike syrinx versus prominence of the central canal is again seen at the cervicothoracic junction. This measures up to 1.4 mm in maximum diameter and extends approximately 2 cm in length at C7-T1. The remainder of the cervical spinal cord is normal in morphology and signal intensity. C2-C3: Unremarkable. C3-C4: Facet arthropathy causes minimal left-sided neural foraminal stenosis. The central canal is patent. C4-C5: Unremarkable. C5-C6: A posterior disc osteophyte complex eccentric to the right abuts the ventral cord. The neural foramina are patent. C6-C7: A large posterior disc osteophyte complex eccentric to the left effaces the ventral cord. This contributes to moderate left-sided neural foraminal stenosis. The right neural foramen is patent. C7-T1: Unremarkable. Soft tissues: The prevertebral and paraspinous soft tissues are normal as visualized. Brain parenchyma: The partially imaged brain parenchyma at the skull base is within normal limits. Cerebellar tonsillar ectopia is noted. IMPRESSION: 1. A slitlike syrinx versus prominence of the central canal at the cervicothoracic junction is unchanged from 02/10/2016. 2. The remainder of the cervical spinal cord is normal in morphology and signal intensity. 3. There is a large posterior disc osteophyte complex eccentric to the left at C6-C7. This effaces the ventral cord and has progressed from the 2016 examination. 4. Mild spondylotic change at additional levels as detailed above. See discussion for [id number] analysis. 5. 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 This is also similar to previous. Dictated: 06/08/2017 6:58 PM Transcribed: 06/08/2017 7:36 PM [email or web address] Electronically signed by: Timothy Ray M.D. 06/09/2017 7:08 AM Dictated Date/Time: 06/08/2017 6:58 PM
== END | disposition home or self-care (01) ==
LOC: C.MRI 17:50
PROVIDERS: ATTEND Physician Assistant
DX: G95.0 Syringomyelia and syringobulbia (principal)